=== PATIENT | female | born 1985 | race Caucasian/White ===

== ENCOUNTER 2016-09-25 18:06 | Inpatient (IN) | payer OTHER ==
[2016-09-25] VITALS (45 sets, daily range): BP systolic 95–157; BP diastolic 35–77; PULSE 56–163; RESP 16–18; TEMP 97.5–97.8
[~2016-09-25] VITALS: Ht 172.7 cm; Wt 93.0 kg
[~2016-09-25 18:06] MED LIST: IBUP600 PO; PERI8.6T PO; PREN1TAB30
[2016-09-25] MEDS: LACTATED RINGER'S 1000 ML INJ 1,000 ML IV SCH ×3 (19:10→22:31)
[2016-09-25 20:23] LABS: AUTOMATED NEUTROPHIL # 5.7 TH/MM3 (1.8-7.7); BASOPHIL % 0.5 % (0.0-2.0); EOSINOPHIL # 0.1 TH/MM3 (0-0.4); EOSINOPHIL % 1.2 % (0.0-4.0); HEMATOCRIT 36.2 % (35.0-46.0); HEMO FLAGS DIFF FINAL; LYMPH % 27.1 % (9.0-44.0); LYMPHOCYTE # 2.5 TH/MM3 (1.0-4.8); MEAN CELL VOLUME 88.4 FL (80.0-100.0); NEUT % 63.2 % (16.0-70.0); PLATELET COUNT 257 TH/MM3 (150-450); RED BLOOD COUNT 4.09 MIL/MM3 (4.00-5.30); RED CELL DISTRIBUTION WIDTH 13.6 % (11.6-17.2); WHITE BLOOD COUNT 9.1 TH/MM3 (4.0-11.0)
[2016-09-25 20:27] LABS: BLOOD, URINE NEG (NEG); COMMENT (UR) CULT NOT INDICATED; CULTURE IF INDICATED CULT NOT INDICATED; GLUCOSE,URINE NEG (NEG); KETONE, URINE NEG (NEG); MUCUS URINE FEW /lpf (OCC); NITRITE,URINE NEG (NEG); SQUAMOUS EPITHELIAL CELL URINE 3 /hpf (0-5); URINE COLOR YELLOW (YELLW/STRAW)
[2016-09-25] MEDS ORDERED: LACTATED RINGER'S 1000 ML INJ 1,000 ML IV PRN (20:34)
[2016-09-25] MEDS ORDERED: LIDOCAINE HCL 1% 50 ML VIAL INFIL PRN (20:45)
[2016-09-25] MEDS ORDERED: LIDOCAINE HCL 1% 50 ML VIAL I-DERMAL PRN (20:45)
[2016-09-25] MEDS ORDERED: OXYTOCIN 30 UNITS-500ML PREMIX 500 ML IV ONE (20:45)
[2016-09-25] MEDS ORDERED: SODIUM CHLORID 0.9% 500 ML INJ 500 ML IV PRN (20:45)
[2016-09-25] MEDS ORDERED: ONDANSETRON HCL 4 MG/2 ML VIAL IV PRN (20:45)
[2016-09-25] MEDS ORDERED: CITRIC ACID-SODIUM CITRATE LIQ 30 ML UDC PO SCH (20:45)
[2016-09-25] MEDS ORDERED: OXYTOCIN 30 UNITS-500ML PREMIX 500 ML IV SCH (20:45)
[2016-09-25] MEDS ORDERED: MINERAL OIL 10 ML VIAL TOPICAL PRN (20:45)
[2016-09-25] MEDS ORDERED: SODIUM CHLOR 0.9% 1000 ML INJ 1,000 ML IV PRN (20:54)
[2016-09-25] MEDS ORDERED: fentaNYL 2MCG-BUPIV 0.125% INJ 100 ML ONE (20:58)
--- NOTE | 2016-09-25 21:16 | MH ---
cc: GLYNN FRANKLIN DATE OF ADMISSION 09/25/2016 REASON FOR ADMISSION A 39 4/7 weeks with favorable Talley score who is miserable with prodromal labor. HISTORY OF PRESENT ILLNESS The patient is a very pleasant 30-year-old white female 2, para 1-0-0-1 with LMP 12/24/2015 and EDC 09/29/16, currently at 39 and 4/7 weeks estimated gestational age who presented to the office today complaining of chronic lower back pain, intermittent contractions, inability to sleep and desire for induction. Her cervix is 3-4 cm, 50% effaced, somewhat mid position and -1 station. Estimated weight of the baby is 7 1/2. Pelvis is clinically adequate and proven to a 7/11. She is normotensive. Her urine is negative and the baby's heart rate is reassuring. She therefore was considered a reasonable candidate for this social induction. Her previous baby was born at 40 and 5/7 weeks, 7 pounds 11 ounces, female infant. This was in March of 2015 and baby's name is Jazmine. Her care began at approximately eight weeks with excellent dating. She had no labor, gestational diabetes or hypertensive disease. Her booking weight was 168. Her weight today is 201. Her labs showed that her blood type is O+. Her hemoglobin was 13.3. Her Pap smear is normal. She is immune to Cymro measles and chickenpox. Her cultures were all negative. Drug screen was negative. Her 28 weeks showed a Glucola of 71. Her Group B strep is negative. She has no chronic or systemic illnesses. PAST SURGICAL HISTORY Her only prior procedure was a breast augmentation in 2007 and an appendectomy at 13 years of age. SOCIAL HISTORY She does not smoke, drink or use illicit drugs. She exercises regularly. She has good family support. She works at [employer]. PHYSICAL EXAMINATION GENERAL: A well-developed, well-nourished white female in no acute distress other than discomfort from her contractions. She reports good movement. No leaking, bleeding but she is having regular contractions. NECK: She has no thyromegaly. LUNGS: Clear to auscultation. HEART: Rate and rhythm are regular. PELVIC: Her fundus is term, infant is cephalic, engaged. Cervix is as described. ABDOMEN: She has no CVA tenderness. EXTREMITIES: She has normal reflexes and minimal edema. IMPRESSION Term intrauterine and a multip with a favorable Talley score who desires induction. Risks, benefits, expectations, alternatives and benefits of natural initiation of labor have all been explained and reviewed with her. She desires to come in and have artificial rupture of membranes and anticipate a vaginal delivery. Glynn Franklin MD PPC/SA /8:40 PM /9:08 PM
[2016-09-25] MEDS ORDERED: ePHEDrine/NS 25 MG/5 ML SYR ONE (22:26)
[2016-09-25] MEDS ORDERED: ePHEDrine/NS 50 MG/5 ML SYR IV PRN (23:00)
[2016-09-25] MEDS ORDERED: NS EPIDURAL SCH (23:00)
[2016-09-25] MEDS ORDERED: NO SYSTEM NARCOTICS XX PRN (23:00)
[2016-09-25] MEDS ORDERED: BUPIVACAINE EPIDURAL SCH (23:00)
[2016-09-25] MEDS ORDERED: fentaNYL 2MCG-BUPIV 0.125% 100 ML EPIDURAL SCH (23:00)
[2016-09-25] MEDS ORDERED: DO NOT ADMINISTER ANTICOAGULANTS XX PRN (23:00)
[2016-09-26] VITALS (34 sets, daily range): BP systolic 91–120; BP diastolic 38–88; PULSE 60–173; RESP 16–18; TEMP 97.3–98.2
--- NOTE | 2016-09-26 02:09 | PD.OB.DELI ---
Anesthesia: Epidural Episiotomy: None Vaginal Delivery: Normal Presentation: Occiput anterior Nuchal Cord: None Delayed cord clamping (45 sec): Yes Infant: Female, Single One Minute : 7 Five Minute : 9 Weight: 6 14 Care: Suctioned, Spontaneous crying, Responded to stimulation, Blow-by O2 delivered Placenta: Manual removal, Intact, Uterus explored +, 3 vessel cord, Other ( bilobed) Laceration: No lacerations (minimal bleeding) Josefina Rizvi MD Sep 26, 2016 02:09
[2016-09-26] MEDS ORDERED: ZOLPIDEM TARTRATE 5 MG TAB PO PRN (02:15)
[2016-09-26] MEDS ORDERED: ALUMINUM/MAGNESIUM/SIMETH 30 ML CUP PO PRN (02:15)
[2016-09-26] MEDS ORDERED: ACETAMINOPHEN 325 MG TAB PO PRN (02:15)
[2016-09-26] MEDS ORDERED: SODIUM CHLORIDE 0.9% FLUSH 5 ML FLUSH IV PRN (02:15)
[2016-09-26] MEDS ORDERED: ONDANSETRON ODT 4 MG TAB PO PRN (02:15)
[2016-09-26] MEDS ORDERED: BENZOCAINE 20% TOPICAL SPRAY 60 ML CAN TOPICAL PRN (02:15)
[2016-09-26] MEDS ORDERED: WITCH HAZEL 50%/GLYCERIN 12.5% 40 PAD JAR TOPICAL PRN (02:15)
[2016-09-26] MEDS: IBUPROFEN 600 MG TAB PO PRN ×3 (07:54→21:59)
--- NOTE | 2016-09-26 08:32 | HHI.OB ---
Subjective Post Day: 0 Remarks pt doing well, no complaints Objective Vitals/I&O Vital Signs Date Time Temp Pulse Resp B/P Pulse Ox O2 Delivery O2 Flow Rate FiO2 09/26/16 04:46 71 16 119/65 09/26/16 04:46 97.3 09/26/16 04:05 78 18 102/43 09/26/16 03:46 78 09/26/16 03:31 86 111/43 09/26/16 03:30 18 09/26/16 03:16 91 116/56 09/26/16 03:01 98.2 65 18 117/57 09/26/16 02:53 18 09/26/16 02:46 72 110/69 09/26/16 02:40 18 09/26/16 02:31 73 120/58 09/26/16 02:25 18 09/26/16 02:16 111 120/67 09/26/16 02:10 18 09/26/16 01:45 82 09/26/16 01:34 97.9 09/26/16 01:31 173 118/61 09/26/16 01:30 82 09/26/16 01:16 123 117/88 09/26/16 01:15 63 09/26/16 01:05 66 09/26/16 01:01 66 91/58 09/26/16 01:00 65 09/26/16 00:50 66 09/26/16 00:48 63 119/38 09/26/16 00:45 67 09/26/16 00:36 18 09/26/16 00:35 78 09/26/16 00:31 88 118/70 09/26/16 00:30 79 09/26/16 00:15 81 111/63 09/26/16 00:15 81 09/26/16 00:04 18 09/26/16 00:00 84 110/60 09/25/16 23:46 74 109/65 09/25/16 23:45 76 09/25/16 23:34 97.6 18 09/25/16 23:30 119/63 09/25/16 23:30 76 09/25/16 23:25 76 09/25/16 23:20 70 09/25/16 23:17 61 103/35 09/25/16 23:15 64 09/25/16 23:01 64 108/57 09/25/16 23:00 65 09/25/16 22:50 65 09/25/16 22:49 65 112/51 09/25/16 22:46 160 103/39 09/25/16 22:45 67 09/25/16 22:40 68 09/25/16 22:36 68 100/51 09/25/16 22:35 76 09/25/16 22:30 68 09/25/16 22:30 64 103/53 09/25/16 22:29 18 09/25/16 22:25 95/52 09/25/16 22:25 56 09/25/16 22:21 163 102/53 09/25/16 22:20 82 09/25/16 22:15 85 107/60 09/25/16 22:15 84 09/25/16 22:14 97.5 09/25/16 22:11 100 113/65 09/25/16 22:10 76 09/25/16 22:06 157/69 09/25/16 22:05 65 09/25/16 22:01 71 135/66 09/25/16 22:00 79 09/25/16 21:56 71 136/59 09/25/16 21:55 66 09/25/16 21:51 65 131/73 09/25/16 21:50 66 09/25/16 21:46 66 140/61 09/25/16 21:45 67 09/25/16 21:41 71 129/77 09/25/16 21:40 70 09/25/16 21:35 90 09/25/16 21:35 73 136/75 09/25/16 21:31 73 132/72 09/25/16 21:30 70 09/25/16 21:27 18 09/25/16 21:26 65 127/70 09/25/16 21:25 70 129/71 09/25/16 20:36 97.8 16 Objective Remarks GENERAL: Well-nourished, well-developed patient. CARDIOVASCULAR: Regular rate and rhythm without murmurs, gallops, or rubs. RESPIRATORY: Breath sounds equal bilaterally. No accessory muscle use. ABDOMEN/GI: Abdomen soft, non-tender. Fundus: Firm, non-tender at umbilicus. GENITOURINARY: Light to moderate bleeding. EXTREMITIES: No cyanosis or edema, non-tender, without signs of DVT. Medications and IVs Current Medications Medications (Trade) Dose Ordered Sig/Rashmi Route Start Time Stop Time Status Last Admin Miscellaneous Information No systemic narcotics to be given except... UNSCH PRN XX 09/25/16 23:00 09/26/16 22:59 Miscellaneous Information DO NOT ADMINISTER ANY ANTICOAGUL... UNSCH PRN XX 09/25/16 23:00 09/26/16 22:59 (NS Flush) 2 ml BID IV 09/26/16 09:00 (NS Flush) 2 ml UNSCH PRN IV 09/26/16 02:15 (Tylenol) 650 mg Q4H PRN PO 09/26/16 02:15 (Motrin) 600 mg Q6H PRN PO 09/26/16 02:15 09/26/16 07:54 (Percocet 5-325 Mg) 1 tab Q4H PRN PO 09/26/16 02:15 (Americaine 20% Top Spr) 1 spray Q4H PRN TOPICAL 09/26/16 02:15 (Tucks Pads) 1 applic QID PRN TOPICAL 09/26/16 02:15 (Cheri-Colace) 2 tab Q12H PRN PO 09/26/16 02:15 (Ambien) 5 mg HS PRN PO 09/26/16 02:15 (M-M-R Ii Inj) 0.5 ml ONCE ONCE SQ 09/26/16 16:00 09/26/16 16:01 (Boostrix Inj) 0.5 ml ONCE ONCE IM 09/26/16 16:00 09/26/16 16:01 (Mag-Al Plus Susp Liq) 15 ml Q8H PRN PO 09/26/16 02:15 (Zofran Odt) 4 mg Q6H PRN PO 09/26/16 02:15 Assessment/Plan Problem List: (1) (normal spontaneous vaginal delivery) Assessment and Plan PPD#0 routine PP care Discharge Planning routine Attending Attestation pt seen by Neeru Forbes MD Sep 26, 2016 08:32
[2016-09-26] MEDS ORDERED: SODIUM CHLORIDE 0.9% FLUSH 5 ML FLUSH IV SCH (09:00)
[2016-09-26] MEDS: DOCUSATE SODIUM 50 MG/SENNA 8.6 MG TAB PO PRN (15:27)
[2016-09-26] MEDS: oxyCODONE/ACETAMINOPHEN 5 MG/325 MG TAB PO PRN ×2 (15:28→21:59)
[2016-09-26] MEDS ORDERED: DIPHTH/TETANUS/ACEL PERTUSSIS (BOOSTER) 0.5 ML VIAL/PFS IM ONE (16:00)
[2016-09-26] MEDS ORDERED: MEASLES, MUMPS, RUBELLA VACCINE 0.5 ML VIAL SQ ONE (16:00)
--- NOTE | 2016-09-27 07:39 | HHI.OB ---
Subjective Post Operative Day: 1 Remarks No signficant discomfort fatigued concerned about milk supply Objective Vitals/I&O Vital Signs Date Time Temp Pulse Resp B/P Pulse Ox O2 Delivery O2 Flow Rate FiO2 09/26/16 08:10 97.7 60 18 120/69 Result Diagram: 09/25/160 Objective Remarks GENERAL: Well-nourished, well-developed patient. CARDIOVASCULAR: Regular rate and rhythm without murmurs, gallops, or rubs. RESPIRATORY: Breath sounds equal bilaterally. No accessory muscle use. ABDOMEN/GI: Abdomen soft, non-tender, bowel sounds present. Incision: Clean, dry and intact. Fundus: Firm, non-tender at umbilicus. GENITOURINARY: Light to moderate bleeding. EXTREMITIES: No cyanosis or edema, non-tender, without signs of DVT. Medications and IVs Current Medications Medications (Trade) Dose Ordered Sig/Rashmi Route Start Time Stop Time Status Last Admin (NS Flush) 2 ml BID IV 09/26/16 09:00 09/26/16 12:50 (NS Flush) 2 ml UNSCH PRN IV 09/26/16 02:15 (Tylenol) 650 mg Q4H PRN PO 09/26/16 02:15 (Motrin) 600 mg Q6H PRN PO 09/26/16 02:15 09/26/16 21:59 (Percocet 5-325 Mg) 1 tab Q4H PRN PO 09/26/16 02:15 09/26/16 21:59 (Americaine 20% Top Spr) 1 spray Q4H PRN TOPICAL 09/26/16 02:15 (Tucks Pads) 1 applic QID PRN TOPICAL 09/26/16 02:15 (Cheri-Colace) 2 tab Q12H PRN PO 09/26/16 02:15 09/26/16 15:27 (Ambien) 5 mg HS PRN PO 09/26/16 02:15 (Mag-Al Plus Susp Liq) 15 ml Q8H PRN PO 09/26/16 02:15 (Zofran Odt) 4 mg Q6H PRN PO 09/26/16 02:15 Assessment/Plan Problem List: (1) (normal spontaneous vaginal delivery) Assessment and Plan PPD1 routine PP care eap consultant possible discharge in late afternoon if baby ok and mom ready Discharge Planning routine Josefina Rizvi MD Sep 27, 2016 07:38
[2016-09-27] MEDS ORDERED: IBUP-232 PO (07:40)
--- NOTE | 2016-09-27 07:40 | HHI.DCPOC ---
Discharge Care Plan Report Symptoms to Your Doctor -Temperate above 100.5 degrees -Redness, of incision or excessive or foul smelling drainage -Unusual pain or calf pain -Increased vaginal bleeding -Painful or difficulty urinating -Feelings of extreme sadness or anxiety after 2 weeks Goals to Promote Your Health * To prevent worsening of your condition and complications * To maintain your health at the optimal level Directions to Meet Your Goals Take your medications as prescribed Follow your dietary instruction Follow activity as directed Ensure plenty of rest for recovery Drink fluids for hydration Keep your appointments as scheduled Take your immunizations and boosters as scheduled If your symptoms worsen call your PCP, if no PCP go to Urgent Care Center or Emergency Room Smoking is Dangerous to Your Health. Avoid second hand smoke Call the 24-hour crisis hotline for domestic abuse at Josefina Rizvi MD Sep 27, 2016 07:40
[2016-09-27] MEDS: DOCUSATE SODIUM 50 MG/SENNA 8.6 MG TAB PO PRN (07:57)
[2016-09-27] MEDS: IBUPROFEN 600 MG TAB PO PRN (07:57)
== END 2016-09-27 15:10 | disposition home or self-care (01) | DRG 775 ==
LOC: H2EA 18:06 → H1EA 09-26 04:21
PROVIDERS: ADMIT Obstetrics & Gynecology; ATTEND Obstetrics & Gynecology
PROC: 10E0XZZ Delivery of Products of Conception, External Approach (ICD-10-PCS; principal; 2016-09-25)
PROC: 3E0R3CZ (ICD-10-PCS; 2016-09-25)
PROC: 00HU33Z Insertion of Infusion Device into Spinal Canal, Percutaneous Approach (ICD-10-PCS; 2016-09-25)
DX: O80 Encounter for full-term uncomplicated delivery (principal); Z37.0 Single live birth; Z3A.39 39 weeks gestation of pregnancy
CPT/HCPCS: 59025; 81001; 85025; 90715; J2590; J7120